=== PATIENT | male | born 1945 | race Hispanic/Latino ===

== ENCOUNTER 2016-10-10 09:38 | Outpatient (CLI) | payer MEDICARE ==
[2016-10-10 12:08] LABS: Hemoglobin A1c 6.6 % (4.0-6.0)
[2016-10-10 12:50] LABS: ALT (SGPT) 24 U/L (8-55); AST (SGOT) 36 U/L (5-34); Albumin 4.4 g/dL (3.4-4.8); Alkaline Phosphatase 80 U/L (40-150); Anion Gap 20 mmol/L (10-20); BUN (Urea Nitrogen) 24 mg/dL (8.4-25.7); Bilirubin, Total 0.6 mg/dL (0.2-1.2); Calc. Creatinine Clearance 0 mL/min (70-130); Calcium 9.7 mg/dL (7.8-10.44); Carbon Dioxide 19 mmol/L (23-31); Chloride 102 mmol/L (98-107); Estimated GFR-MDRD 57; Globulin 2.9 g/dL (2.4-3.5); Glucose 93 mg/dL (83-110); Potassium 4.6 mmol/L (3.5-5.1); Protein, Total 7.3 g/dL (5.8-8.1); Sodium 136 mmol/L (136-145)
== END 2016-10-10 09:39 | disposition home or self-care (01) ==
LOC: NAVSJIPCSP 09:38
PROVIDERS: ATTEND Internal Medicine
DX: E78.5 Hyperlipidemia, unspecified (principal); I10 Essential (primary) hypertension; E11.9 Type 2 diabetes mellitus without complications
CPT/HCPCS: 36415; 80053; 83036

== ENCOUNTER 2016-12-11 16:43 | Outpatient (CLI) | payer MEDICARE ==
--- NOTE | 2016-12-11 18:51 | ULT ---
COMPLETE ABDOMINAL ULTRASOUND: Comparison: None. History: Right side flank pain with hematuria. Severe vomiting that started this morning. Technique: Multiplanar grayscale and color doppler images were obtained in a complete abdominal ultr asound. FINDINGS: The liver is normal in echogenicity without focal lesions or intrahepatic ductal dilatation. The gal lbladder is normal without stones, sludge, gallbladder wall thickening or pericholecystic fluid. The common bile duct is normal measuring 5 mm. The aorta and inferior vena cava are normal in caliber. The visualized portions of the pancreas are unremarkable. The spleen is normal in echogenicity without focal lesion and measures 11 cm in length . The right kidney is normal in echogenicity without hydronephrosis or calculus and measures 10.8 cm i n length. There is moderate left sided hydronephrosis and hydroureter. There is an echogenic region in the kidney measuring approximately 1.0 cm in size and could represent a renal calcification. No obvious calcification is seen within the dilated ureter although it cannot be followed completely in to the pelvis. IMPRESSION: 1. Moderate left hydronephrosis and hydroureter. 2. Possible left nephrolithiasis. POS: NADIYA
[2016-12-11 18:55] LABS: Anion Gap 17 mmol/L (10-20); BUN (Urea Nitrogen) 21 mg/dL (8.4-25.7); Calc. Creatinine Clearance 0 mL/min (70-130); Calcium 9.9 mg/dL (7.8-10.44); Carbon Dioxide 23 mmol/L (23-31); Chloride 105 mmol/L (98-107); Estimated GFR-MDRD 48; Glucose 197 mg/dL (83-110); Potassium 4.9 mmol/L (3.5-5.1); Sodium 140 mmol/L (136-145)
== END 2016-12-11 16:44 | disposition home or self-care (01) ==
LOC: NAV LAB 16:43
DX: R10.30 Lower abdominal pain, unspecified (principal); N13.30 Unspecified hydronephrosis
CPT/HCPCS: 76700; 80048

== ENCOUNTER 2016-12-11 18:22 | Emergency (ER) | payer MEDICARE ==
[2016-12-11] MEDS ORDERED: Acetaminophen/Codeine 30-300mg Tablet ONE (18:52)
[2016-12-11] MEDS ORDERED: Ondansetron ODT 4 MG TAB ONE (18:53)
--- NOTE | 2016-12-11 21:14 | CT ---
CT ABDOMEN AND PELVIS WITHOUT CONTRAST: Comparison: Abdominal ultrasound, 12-11-16 History: Left flank pain with left sided hydronephrosis. Technique: Multiple contiguous axial images were obtained in a CT of the abdomen and pelvis without contrast. Coronal reformats were performed. FINDINGS: There is moderate left hydronephrosis and hydroureter. There is a 3 mm calcification at the left ure terovesical junction. There is a metallic slip in the right kidney. No calcification is seen in eith er kidney and the echogenic regions seen on ultrasound was likely artifactual. No right sided hydron ephrosis is seen. The liver, gallbladder, adrenal glands, spleen, and pancreas are unremarkable on this limited noncon trast examination. The large and small bowel are unremarkable. The appendix is normal. No abdominal or pelvic lymphaden opathy are seen. Degenerative changes are seen in the spine. The visualized inferior thorax and abdominal wall soft t issues are unremarkable. IMPRESSION: 1. Left distal ureteral calcification with moderate left hydronephrosis. POS: NADIYA
== END 2016-12-11 19:47 | disposition home or self-care (01) ==
LOC: NAV ERS 18:22
DX: N13.2 Hydronephrosis with renal and ureteral calculous obstruction (principal); E11.9 Type 2 diabetes mellitus without complications; E78.5 Hyperlipidemia, unspecified; Z79.84 Long term (current) use of oral hypoglycemic drugs; Z79.899 Other long term (current) drug therapy
CPT/HCPCS: 74176; 76700; 80048; Q0162

== ENCOUNTER 2016-12-12 15:50 | Outpatient (CLI) | payer MEDICARE ==
[2016-12-12 21:57] LABS: Bilirubin Negative (Negative); Blood, Urine Large (Negative); Glucose, Urine (Dipstick) 500 mg/dL (Negative); Leukocyte Negative (Negative); Nitrite Negative (Negative); Protein, Urine (Dipstick) 30 mg/dL (Neg-Trace); Urobilinogen 0.2 mg/dL (0.2-1.0); pH, Urine 5.5 (5.0-9.0)
[2016-12-12 21:59] LABS: Clarity Hazy (Clear)
[2016-12-12 22:21] LABS: Specific Gravity, Urine 1.032 (1.002-1.036)
[2016-12-12 22:24] LABS: Crystals/HPF 4+ URIC ACID HPF (Negative); WBC/HPF 0-3 HPF (0-3)
== END 2016-12-12 15:51 | disposition home or self-care (01) ==
LOC: NAVSJIPCSP 15:50
DX: R10.9 Unspecified abdominal pain (principal)
CPT/HCPCS: 81003; 81015; 87086

== ENCOUNTER 2016-12-13 14:27 | Outpatient (CLI) | payer MEDICARE | END 2016-12-13 14:28 | disposition home or self-care (01) | LOC: NAV LAB 14:27 | PROVIDERS: ATTEND Urology | DX: Z12.5 Encounter for screening for malignant neoplasm of prostate (principal) | CPT/HCPCS: 36415; G0103 ==

== ENCOUNTER 2022-11-21 11:30 | Outpatient (CLI) | payer MEDICARE | END 2022-11-21 11:31 | disposition home or self-care (01) | LOC: NAV RAD 11:30 | PROVIDERS: ATTEND Family Medicine | DX: S69.91XA Unspecified injury of right wrist, hand and finger(s), initial encounter (principal); M79.89 Other specified soft tissue disorders; M19.041 Primary osteoarthritis, right hand ==